=== PATIENT | male | born 1955 | race Caucasian/White ===

== ENCOUNTER 2020-02-04 13:08 | Emergency (ER) | payer OTHER ==
[~2020-02-04] VITALS: Ht 182.9 cm; Wt 83.9 kg
[2020-02-04 13:30] VITALS: BP 132/85; Ht 182.9 cm; Wt 83.9 kg
== END 2020-02-04 13:58 | disposition other institution (70) ==
LOC: ED 13:08
DX: Z02.89 Encounter for other administrative examinations (principal)